=== PATIENT | male | born 1960 | race Native Hawaiian/Other Pacific Islander ===

== ENCOUNTER 2016-12-21 09:44 | Emergency (ER) | payer BC ==
[~2016-12-21] VITALS: Ht 182.9 cm; Wt 93.0 kg
[2016-12-21 09:50] VITALS: TEMP 98.7
[2016-12-21 10:39] VITALS: BP 132/80
== END 2016-12-21 10:41 | disposition home or self-care (01) ==
LOC: ED 09:44
DX: S32.039A Unspecified fracture of third lumbar vertebra, initial encounter for closed fracture (principal); M47.897 Other spondylosis, lumbosacral region; V86.99XA Unspecified occupant of other special all-terrain or other off-road motor vehicle injured in nontraffic accident, initial encounter; Y92.098 Other place in other non-institutional residence as the place of occurrence of the external cause
CPT/HCPCS: 96372; 99283; J1885

== ENCOUNTER 2018-09-25 08:47 | Outpatient (CLI) | payer BC | END 2018-09-25 19:34 | disposition home or self-care (01) | LOC: CT 08:47 | DX: R10.9 Unspecified abdominal pain (principal) | CPT/HCPCS: 36415; 82565; 84520; Q9963 ==

== ENCOUNTER 2018-10-19 07:24 | Outpatient (CLI) | payer BC | END 2018-10-19 23:42 | disposition home or self-care (01) | LOC: CT 07:24 | DX: R16.1 Splenomegaly, not elsewhere classified (principal); R10.9 Unspecified abdominal pain; R19.09 Other intra-abdominal and pelvic swelling, mass and lump | CPT/HCPCS: Q9963 ==

== ENCOUNTER 2020-05-28 09:42 | Outpatient (CLI) | payer BC | END 2020-05-28 21:43 | disposition home or self-care (01) | LOC: MRI 09:42 | PROVIDERS: ATTEND Internal Medicine | DX: R51.9 Headache, unspecified (principal); R41.3 Other amnesia ==

== ENCOUNTER 2020-06-22 09:54 | Emergency (ER) | payer BC ==
[~2020-06-22] VITALS: Ht 182.9 cm; Wt 86.2 kg
[2020-06-22 10:15] VITALS: TEMP 96.7
[2020-06-22 11:05] LABS: POTASSIUM 3.9 mmol/L (3.6-5.2)
[2020-06-22 11:14] LABS: PLATELET COUNT 182 K/uL (142-355)
[2020-06-22 15:16] VITALS: BP 111/75
== END 2020-06-22 16:28 | disposition short-term general hospital (02) ==
LOC: ED 09:54
PROVIDERS: Family Medicine
DX: R18.8 Other ascites (principal); J90 Pleural effusion, not elsewhere classified; B17.9 Acute viral hepatitis, unspecified; Z03.818 Encounter for observation for suspected exposure to other biological agents ruled out; F17.210 Nicotine dependence, cigarettes, uncomplicated
CPT/HCPCS: 36415; 80053; 80320; 81000; 82140; 82150; 83690; 85007; 85027; 87635; 96374; 96375; 99284; J1940; J2060; J2405; Q9963; U0003

== ENCOUNTER 2020-07-12 00:28 | Emergency (ER) | payer BC ==
[~2020-07-12] VITALS: Ht 182.9 cm; Wt 86.2 kg
[2020-07-12 00:59] LABS: POTASSIUM 4.6 mmol/L (3.6-5.2); SODIUM 126 mmol/L (136-145)
[2020-07-12 01:04] LABS: PLATELET COUNT 166 K/uL (142-355)
[2020-07-12 05:45] VITALS: BP 100/62; TEMP 97.9
== END 2020-07-12 05:45 | disposition short-term general hospital (02) ==
LOC: ED 00:33
PROVIDERS: Family Medicine
DX: A41.89 Other specified sepsis (principal); R18.8 Other ascites; R65.21 Severe sepsis with septic shock; K74.69 Other cirrhosis of liver; R06.02 Shortness of breath
CPT/HCPCS: 36415; 36600; 80053; 82150; 82805; 83605; 83690; 83880; 84484; 85007; 85027; 85379; 87040; 93005; 96360; 96361; 96365; 96366; 96375; 99285; J1265; J2405; J2543